=== PATIENT | female | born 1960 | race Caucasian/White ===

== ENCOUNTER 2018-06-15 12:45 | Emergency (ER) | payer OTHER ==
[~2018-06-15] VITALS: Ht 157.5 cm; Wt 83.5 kg
[~2018-06-15 12:45] MED LIST: GLIMEPIRIDE2 MG PO; LITHIUM CARBON450 MG PO; METFORMIN HCL500 M3 PO; RISPERDAL M-TAB2 MG PO; VASOTEC5 MG PO
[2018-06-15] MEDS ORDERED: LEVOXYL50 MCG (14:05)
[2018-06-15] MEDS ORDERED: OMEGA 3-6-9 11200 M1 (14:05)
[2018-06-15] MEDS ORDERED: ATORVASTATIN CA20 MG (14:06)
[2018-06-15] MEDS ORDERED: CLONAZEPAM0.5 M1 (14:06)
== END 2018-06-15 19:31 | disposition home or self-care (01) ==
LOC: ER 12:45
DX: B34.9 Viral infection, unspecified (principal)

== ENCOUNTER 2019-04-25 16:01 | Emergency (ER) | payer OTHER ==
[~2019-04-25] VITALS: Ht 157.5 cm; Wt 86.2 kg
[~2019-04-25 16:01] MED LIST changes: +ATORVASTATIN CA20 MG; +CLONAZEPAM0.5 M1; +LEVOXYL50 MCG; +OMEGA 3-6-9 11200 M1
== END 2019-04-25 22:01 | disposition home or self-care (01) ==
LOC: ER 16:01
DX: J98.8 Other specified respiratory disorders (principal)

== ENCOUNTER 2020-07-17 23:14 | Emergency (ER) | payer OTHER ==
[~2020-07-17] VITALS: Ht 157.5 cm; Wt 93.0 kg
== END 2020-07-18 02:55 | disposition home or self-care (01) ==
LOC: ER 23:14
DX: M25.562 Pain in left knee (principal)

== ENCOUNTER 2020-10-29 22:04 | Emergency (ER) | payer OTHER ==
[~2020-10-29] VITALS: Ht 157.5 cm; Wt 95.3 kg
[2020-10-29] MEDS ORDERED: ARIPIPRAZOLE2 MG PO (22:14)
[2020-10-29] MEDS ORDERED: VITAMIN D350 MCG PO (22:14)
[2020-10-29] MEDS ORDERED: CLONAZEPAM1 MG PO (22:14)
[2020-10-29] MEDS ORDERED: LEVOTHYROXINE100 MCG PO (22:14)
[2020-10-29] MEDS ORDERED: BENZONATATE200 M1 PO (22:14)
[2020-10-29] MEDS ORDERED: ENALAPRIL MALEAT5 MG PO (22:14)
[2020-10-29] MEDS ORDERED: MONTELUKAST SOD10 MG PO (22:15)
[2020-10-29] MEDS ORDERED: METFORMIN HCL500 M4 PO (22:15)
[2020-10-29] MEDS ORDERED: TUSNEL LIQUID178 ML PO (23:36)
== END 2020-10-29 23:51 | disposition home or self-care (01) ==
LOC: ER 22:04
DX: R05 Cough (principal)

== ENCOUNTER 2021-08-31 09:54 | Inpatient (IN) | payer OTHER ==
[~2021-08-31] VITALS: Ht 157.5 cm; Wt 89.4 kg
[~2021-08-31 09:54] MED LIST changes: +ARIPIPRAZOLE2 MG PO; +ATIVAN0.5 M1 PO; +BENZONATATE200 M1 PO; +BENZTROPINE PO; +CLONAZEPAM1 MG PO; +COZAAR25 MG PO; +DIVALPROEX SOD500 M1 PO; +ENALAPRIL MALEAT5 MG PO; +LEVOTHYROXINE100 MCG PO; +METFORMIN HCL500 M4 PO; +MONTELUKAST SOD10 MG PO; +RESTORIL30 M1 PO; +TUSNEL LIQUID178 ML PO; +VITAMIN D350 MCG PO
== END 2021-09-01 13:44 | disposition home or self-care (01) | DRG 581 ==
LOC: CIR.AMB 09:54 → OB/GYN 18:30
PROVIDERS: ADMIT Surgery; ATTEND Surgery
PROC: 0HBT0ZZ Excision of Right Breast, Open Approach (ICD-10-PCS; 2021-08-31)
PROC: 07T50ZZ Resection of Right Axillary Lymphatic, Open Approach (ICD-10-PCS; principal; 2021-08-31 14:30)
DX: D05.01 Lobular carcinoma in situ of right breast (principal); Z20.822 Contact with and (suspected) exposure to COVID-19

== ENCOUNTER 2021-10-16 10:30 | Emergency (ER) | payer OTHER ==
[~2021-10-16] VITALS: Ht 170.2 cm; Wt 76.7 kg
== END 2021-10-16 14:40 | disposition home or self-care (01) ==
LOC: ER 10:30
DX: M54.59 Other low back pain (principal); Z88.0 Allergy status to penicillin; I10 Essential (primary) hypertension; E11.9 Type 2 diabetes mellitus without complications; Z79.899 Other long term (current) drug therapy; C50.911 Malignant neoplasm of unspecified site of right female breast

== ENCOUNTER 2023-02-16 17:07 | Emergency (ER) | payer OTHER ==
[~2023-02-16] VITALS: Ht 167.6 cm; Wt 72.6 kg
== END 2023-02-16 18:32 | disposition home or self-care (01) ==
LOC: ER 17:07
DX: M25.561 Pain in right knee (principal); Z88.0 Allergy status to penicillin

== ENCOUNTER 2023-04-29 20:05 | Emergency (ER) | payer OTHER ==
[~2023-04-29] VITALS: Ht 162.6 cm; Wt 81.6 kg
[2023-04-29] MEDS ORDERED: ANASTROZOLE1 MG (20:33)
[2023-04-30] MEDS ORDERED: ZYNCOF 20-400120 ML PO ×2 (01:47→01:49)
[2023-04-30] MEDS ORDERED: NABUMETONE750 MG PO (01:49)
== END 2023-04-30 02:48 ==
LOC: ER 20:06
DX: S00.202A Unspecified superficial injury of left eyelid and periocular area, initial encounter (principal); W18.2XXA Fall in (into) shower or empty bathtub, initial encounter; Y93.F1 Activity, caregiving, bathing; Y92.012 Bathroom of single-family (private) house as the place of occurrence of the external cause; Z88.0 Allergy status to penicillin

== ENCOUNTER 2023-10-27 21:37 | Emergency (ER) | payer OTHER ==
[~2023-10-27] VITALS: Ht 157.5 cm; Wt 81.6 kg
[~2023-10-27 21:37] MED LIST changes: +ANASTROZOLE1 MG; +NABUMETONE750 MG PO; +ZYNCOF 20-400120 ML PO
== END 2023-10-27 23:44 | disposition home or self-care (01) ==
LOC: ER 21:38
DX: S09.8XXA Other specified injuries of head, initial encounter (principal); W22.8XXA Striking against or struck by other objects, initial encounter; Y93.F1 Activity, caregiving, bathing; Y92.89 Other specified places as the place of occurrence of the external cause; Z88.0 Allergy status to penicillin

== ENCOUNTER 2023-12-01 18:12 | Emergency (ER) | payer OTHER ==
[~2023-12-01] VITALS: Ht 157.5 cm; Wt 81.6 kg
[2023-12-01] MEDS ORDERED: KETOROLAC TROMETHAMINE 60 MG VIAL IM ONE (19:00)
[2023-12-01] MEDS ORDERED: DICLOFENAC SODI75 MG PO (19:53)
== END 2023-12-01 20:27 | disposition home or self-care (01) ==
LOC: ER 18:13
DX: M72.2 Plantar fascial fibromatosis (principal); I10 Essential (primary) hypertension; E11.9 Type 2 diabetes mellitus without complications; Z79.84 Long term (current) use of oral hypoglycemic drugs; Z88.0 Allergy status to penicillin

== ENCOUNTER → 2024-09-09 | Emergency (ER) | payer OTHER ==
[~2024-09-09] VITALS: Ht 160 cm; Wt 89.8 kg
[~2024-09-09] MED LIST changes: +ABILIFY2 MG; +BENZTROPINE MESY2 MG PO; +DICLOFENAC SODI75 MG PO; +DIPHTH,PERTUSS(ACELL),TET VAC 0.5 ML SYRINGE IM ONE; +LIDOCAINE HCL 1%/EPINEPHRINE 10 ML VIAL IJ ONE; +LIDOCAINE HCL 1%/EPINEPHRINE 20ML VIAL IJ ONE; +TETANUS & DIPHTHERIA TOX,ADULT 0.5 ML VIAL IM ONE
[2024-09-09 19:50] VITALS: BP 117/79; O2SAT 100
== END | disposition home or self-care (01) ==
LOC: ER 19:15
DX: S01.111A Laceration without foreign body of right eyelid and periocular area, initial encounter (principal); S09.90XA Unspecified injury of head, initial encounter; W18.39XA Other fall on same level, initial encounter; Y93.89 Activity, other specified; Y92.018 Other place in single-family (private) house as the place of occurrence of the external cause; Y99.9 Unspecified external cause status; M51.369 Other intervertebral disc degeneration, lumbar region without mention of lumbar back pain or lower extremity pain; Z88.0 Allergy status to penicillin